=== PATIENT | female | born 1985 | race Caucasian/White ===

== ENCOUNTER 2022-07-10 16:02 | Inpatient (IN) | payer MEDICAID ==
[~2022-07-10] VITALS: Ht 170 cm; Wt 92.0 kg
[2022-07-10 17:14] LABS: CLARITY URINE CLOUDY (CLEAR); COLOR URINE YELLOW (YELLOW); KETONES URINE NEGATIVE (NEGATIVE); LEUKOCYTE ESTERASE URINE NEGATIVE (NEGATIVE); NITRITE URINE NEGATIVE (NEGATIVE); OCCULT BLOOD URINE 3+ (NEGATIVE); PH URINE 7.5 (4.5-8.0); PROTEIN URINE 2+ (NEGATIVE); SPECIFIC GRAVITY URINE 1.006 (1.005-1.030); UROBILINOGEN URINE 0.2 E.U./dL (0.2-1.0)
[2022-07-10] MEDS ORDERED: LEVO150T8 PO (17:23)
[2022-07-10] MEDS ORDERED: LORA2ORA5 PO (17:23)
[2022-07-10] MEDS ORDERED: CITRIC ACID/SODIUM CITRATE SOLN 30ML UDC PO NR (17:30)
[2022-07-10 17:38] LABS: INR 0.9; PARTIAL THROMBOPLASTIN TIME < 21.0 sec (23.4-31.0)
[2022-07-10 17:47] LABS: *AMPHETAMINES SCREEN URINE NEGATIVE (NEGATIVE); *BARBITURATES SCREEN URINE NEGATIVE (NEGATIVE); *BENZODIAZEPINES SCREEN URINE NEGATIVE (NEGATIVE); *COCAINE SCREEN URINE NEGATIVE (NEGATIVE); CANNABINOID URINE SCREEN NEGATIVE (NEGATIVE); METHADONE URINE SCREEN NEGATIVE (NEGATIVE); OPIATES URINE SCREEN NEGATIVE (NEGATIVE); PHENCYCLIDINE URINE SCREEN NEGATIVE (NEGATIVE)
[2022-07-10] MEDS: LACTATED RINGERS 1,000 ML IV SCH ×2 (18:28→19:45)
[2022-07-10] MEDS ORDERED: MORPHINE SULFATE/PF 1MG/ML 10ML AMP ONE (18:32)
[2022-07-10] MEDS ORDERED: FENTANYL CITRATE/PF 50MCG/ML 2ML VIAL ONE (18:32)
[2022-07-10] MEDS ORDERED: EPHEDRINE SULFATE 50MG/ML VIAL ONE (18:32)
[2022-07-10] MEDS ORDERED: OXYTOCIN 10 UNITS/ML 1ML ONE ×2 (18:32→20:46)
[2022-07-10] MEDS ORDERED: PHENYLEPHRINE HCL 10 MG/ML 1ML (IV VIAL) IV ONE (18:33)
[2022-07-10] MEDS ORDERED: CLINDAMYCIN 900 MG PREMIX 50 ML IV ONE (18:33)
[2022-07-10] MEDS ORDERED: LEVE1000 MT (18:36)
[2022-07-10] MEDS ORDERED: MIDAZOLAM HCL 2 MG/2 ML VIAL ONE (18:37)
[2022-07-10 19:33] LABS: BASOPHILS % 0.2 % (0.0-2.0); HEMATOCRIT. 41.7 % (36.0-48.0); HEMOGLOBIN. 14.2 g/dL (12.0-16.0); LYMPHOCYTES % 19.3 % (20.0-50.0); MEAN CORPUSCULAR HEMOGLOBIN 30.3 pg (28.0-32.0); MEAN CORPUSCULAR VOLUME 89.4 fL (81.0-99.0); MEAN PLATELET VOLUME 10.4 fl (7.4-10.4); MONOCYTES % 8.5 % (2.0-8.0); PLATELET 167 x1000/uL (130-400); RED BLOOD CELL COUNT 4.67 mill/uL (4.2-5.4); RED CELL DISTRIBUTION WIDTH 14.1 % (11.6-14.6)
[2022-07-10 19:48] LABS: CHLORIDE 110 mEq/L (98-107)
[2022-07-10] MEDS ORDERED: GLYCOPYRROLATE 0.2 MG/ML 2ML VIAL ONE (20:18)
[2022-07-10] MEDS ORDERED: BISACODYL 10MG SUPP PR PRN (21:30)
[2022-07-10] MEDS ORDERED: DIPHENHYDRAMINE 25MG CAPSULE PO PRN (21:30)
[2022-07-10] MEDS ORDERED: ACETAMINOPHEN 325MG TABLET PO PRN (21:30)
[2022-07-10] MEDS ORDERED: HYDROMORPHONE HCL/PF 2MG/ML CPJ IM PRN (21:30)
[2022-07-10] MEDS ORDERED: BUTORPHANOL TARTRATE 2 MG/ML VIAL IV PRN (22:30)
[2022-07-10] MEDS ORDERED: HYDROMORPHONE HCL/PF 2MG/ML CPJ IV PRN (22:30)
[2022-07-10] MEDS ORDERED: NALOXONE HCL 0.4 MG/ML 1ML VIAL IV PRN (22:30)
[2022-07-10 22:55] VITALS: BP 115/71
[2022-07-11] VITALS: BP 101/58
[2022-07-11] MEDS: OXYTOCIN 30 UNITS/500ML NS PMX 500 ML IV SCH ×2 (02:47→06:22)
[2022-07-11 03:50] VITALS: BP 103/59
[2022-07-11 07:08] LABS: BASOPHILS % 0.1 % (0.0-2.0); EOSINOPHILS % 0.1 % (0.0-5.0); HEMATOCRIT. 36.9 % (36.0-48.0); HEMOGLOBIN. 12.5 g/dL (12.0-16.0); LYMPHOCYTES % 10.7 % (20.0-50.0); MEAN CORPUSCULAR HEMOGLOBIN 30.3 pg (28.0-32.0); MEAN CORPUSCULAR VOLUME 89.2 fL (81.0-99.0); MEAN PLATELET VOLUME 10.9 fl (7.4-10.4); NEUTROPHILS % 81.1 % (40.0-76.0); PLATELET 157 x1000/uL (130-400); RED BLOOD CELL COUNT 4.14 mill/uL (4.2-5.4); RED CELL DISTRIBUTION WIDTH 14.2 % (11.6-14.6)
[2022-07-11] MEDS: FERROUS SULFATE 325MG TABLET PO SCH ×3 (07:30→17:30)
[2022-07-11 08:00] VITALS: BP 92/60
[2022-07-11] MEDS: LEVOTHYROXINE SODIUM 150MCG TABLET PO SCH ×2 (08:00→09:18)
[2022-07-11] MEDS ORDERED: ONDANSETRON HCL 4MG/2ML INJ IV PRN (08:45)
[2022-07-11] MEDS: PRENATAL VIT/FE FUMARATE/FA TABLET PO SCH (09:00)
[2022-07-11] MEDS: LEVETIRACETAM 500MG/5ML CUP PO SCH ×2 (09:18→20:58)
[2022-07-11 12:00] VITALS: BP 99/57
[2022-07-11 20:00] VITALS: BP 98/58
[2022-07-12 03:30] VITALS: BP 90/52
[2022-07-12] MEDS: ACETAMINOPHEN WITH CODEINE 300/30MG TABLET PO PRN (03:36)
[2022-07-12] MEDS: FERROUS SULFATE 325MG TABLET PO SCH ×3 (07:30→17:28)
[2022-07-12 08:00] VITALS: BP 96/63
[2022-07-12] MEDS: LEVETIRACETAM 500MG/5ML CUP PO SCH ×2 (08:15→20:14)
[2022-07-12] MEDS: LEVOTHYROXINE SODIUM 150MCG TABLET PO SCH (08:15)
[2022-07-12] MEDS: PRENATAL VIT/FE FUMARATE/FA TABLET PO SCH (08:15)
[2022-07-12 16:00] VITALS: BP 95/60
[2022-07-12 20:00] VITALS: BP 97/59
[2022-07-13] MEDS: ACETAMINOPHEN WITH CODEINE 300/30MG TABLET PO PRN ×2 (01:47→16:26)
[2022-07-13 03:30] VITALS: BP 92/50
[2022-07-13 07:30] VITALS: BP 105/67
[2022-07-13] MEDS: LEVETIRACETAM 500MG/5ML CUP PO SCH (08:04)
[2022-07-13] MEDS: PRENATAL VIT/FE FUMARATE/FA TABLET PO SCH (08:04)
[2022-07-13] MEDS: FERROUS SULFATE 325MG TABLET PO SCH ×3 (08:04→17:30)
[2022-07-13] MEDS: LEVOTHYROXINE SODIUM 150MCG TABLET PO SCH (08:04)
[2022-07-13 15:25] VITALS: BP 98/63
[2022-07-13] MEDS ORDERED: IBUP-2030 MT (19:10)
[2022-07-14 10:06] LABS: HBSAG SCREEN Negative (Negative)
== END 2022-07-13 20:10 | disposition home or self-care (01) | DRG 540 ==
LOC: 8 EST LDRP 16:02 → OBSVTOIN 16:03 → 8EST 22:50
PROVIDERS: ADMIT Obstetrics & Gynecology; ATTEND Pediatrics Neonatal-Perinatal Medicine
PROC: 10D00Z1 Extraction of Products of Conception, Low, Open Approach (ICD-10-PCS; principal; 2022-07-10)
PROC: 3E0S3BZ Introduction of Anesthetic Agent into Epidural Space, Percutaneous Approach (ICD-10-PCS; 2022-07-10)
PROC: 00HU33Z Insertion of Infusion Device into Spinal Canal, Percutaneous Approach (ICD-10-PCS; 2022-07-10)
DX: O34.211 Maternal care for low transverse scar from previous cesarean delivery (principal); L51.1 Stevens-Johnson syndrome; O99.354 Diseases of the nervous system complicating childbirth; D62 Acute posthemorrhagic anemia; O99.12 Other diseases of the blood and blood-forming organs and certain disorders involving the immune mechanism complicating childbirth; O69.81X0 Labor and delivery complicated by cord around neck, without compression, not applicable or unspecified; Z20.822 Contact with and (suspected) exposure to COVID-19; G40.909 Epilepsy, unspecified, not intractable, without status epilepticus; O99.284 Endocrine, nutritional and metabolic diseases complicating childbirth; O90.81 Anemia of the puerperium; D72.829 Elevated white blood cell count, unspecified; O99.72 Diseases of the skin and subcutaneous tissue complicating childbirth; E89.0 Postprocedural hypothyroidism; Z37.0 Single live birth; Z88.2 Allergy status to sulfonamides; Z3A.39 39 weeks gestation of pregnancy; Z88.0 Allergy status to penicillin; Z83.3 Family history of diabetes mellitus; Z85.850 Personal history of malignant neoplasm of thyroid; D25.2 Subserosal leiomyoma of uterus; O34.13 Maternal care for benign tumor of corpus uteri, third trimester
CPT/HCPCS: 36415; 76805; 76818; 80053; 80305; 81003; 85025; 86592; 86703; 86762; 86850; 86900; 86920; 87340; 87426; 88307; 94760; 99281; G0378; J2250; J2274; J2370; J2405; J3010; J3490; A4315; J2590